=== PATIENT | female | born 1970 | race African-American/Black ===

== ENCOUNTER 2019-11-11 14:04 | Inpatient (IN) | payer MEDICAID ==
[2019-11-11] VITALS (16 sets, daily range): BP systolic 138–188; BP diastolic 62–113
[~2019-11-11] VITALS: Ht 162.6 cm; Wt 91.2 kg
[2019-11-11] MEDS ORDERED: SODIUM CHLORIDE 0.9% 1,000 ML IV ONE ×2 (14:24→15:11)
[2019-11-11] MEDS ORDERED: ASPirin 81 mg TAB PO ONE (14:30)
[2019-11-11] MEDS ORDERED: cloNIDine HCL 0.1 MG TAB PO ONE (14:30)
[2019-11-11 14:32] LABS: Basophils # (auto) 0.2 10 ^3/uL (0-0.2); Basophils % (auto) 2.1 % (0.0-2.0); Eosinophils # (auto) 0.1 10 ^3/uL (0-0.8); Eosinophils % (auto) 1.5 % (0.0-7.0); Hematocrit 45.6 % (36.0-46.0); Hemoglobin 15.4 g/dL (12.2-16.2); Lymphocytes # (auto) 2.5 10 ^3/uL (0.4-5.4); Lymphocytes % (auto) 27.2 % (10.0-50.0); Mean Corpuscular Hemoglobin 30.6 pg (28.0-32.0); Mean Corpuscular Hgb Conc. 33.7 g/dL (32.0-36.0); Mean Corpuscular Volume 90.9 fL (80.0-100.0); Monocytes # (auto) 0.8 10 ^3/uL (0-1.3); Monocytes % (auto) 8.7 % (0.0-12.0); Neutrophils # (auto) 5.6 10 ^3/uL (1.6-8.6); Neutrophils % (auto) 60.5 % (37.0-80.0); Nucleated Red Blood Cells % 0.1 %; Platelet Count (auto) 367 10^3/uL (140-450); Red Blood Cells 5.01 10^6/uL (4.0-5.20); White Blood Cell 9.2 10^3/uL (4.4-10.8)
[2019-11-11 14:49] LABS: Albumin 3.2 g/dL (3.4-5.0); Anion Gap 4 (5-15); Blood Urea Nitrogen 22 mg/dL (7-18); Calcium 8.8 mg/dL (8.5-10.1); Carbon Dioxide 30 mmol/L (21-32); Chloride 101 mmol/L (98-107); Potassium 4.3 mmol/L (3.5-5.1); Sodium 135 mmol/L (136-145)
[2019-11-11 14:54] LABS: Alanine Aminotransferase 20 U/L (13-56); Alkaline Phosphatase 109 U/L (45-117); Aspartate Aminotransferase 14 U/L (15-37); BUN/Creatinine Ratio 18.3; Bilirubin, Total 0.4 mg/dL (0.2-1.0); GFR African American 62 mL/min; GFR Non-African American 51 mL/min; Total Protein 7.7 g/dL (6.4-8.2)
[2019-11-11] MEDS ORDERED: SODIUM CHLORIDE 0.9% 500 ML IVB ONE (15:11)
[2019-11-11 15:22] LABS: Glucose 420 mg/dL (74-106)
[2019-11-11 15:50] LABS: Partial Thromboplastin Time 27.5 sec (23.64-32.05)
[2019-11-11] MEDS ORDERED: InsuLIN REG 1unit/0.01ml Soln (100units/ml) IV ONE (16:00)
[2019-11-11] MEDS ORDERED: ISOSORBIDE MONONITRATE ER 60 MG TAB PO ONE (17:00)
[2019-11-11] MEDS: InsuLIN REG 1unit/0.01ml Soln (100units/ml) SC SCH ×3 (17:00→22:17)
[2019-11-11] MEDS ORDERED: MORPHINE SULF INJ 2 MG/ML SYRINGE 1ML IV PRN (17:00)
[2019-11-11] MEDS ORDERED: ACCU-CHEK COMFORT CURVE STRIP VI SCH (17:00)
[2019-11-11] MEDS: ACCU-CHEK COMFORT CURVE STRIP VI SCH ×2 (17:00→22:17)
[2019-11-11] MEDS ORDERED: NITROGLYCERIN 0.4 MG SL TAB SL PRN (17:00)
[2019-11-11] MEDS ORDERED: DEXTROSE (50%) 50ML SYRG IV PRN ×2 (17:00)
[2019-11-11 19:19] LABS: Cholesterol 236 mg/dL (< 200); HDL Cholesterol 56 mg/dL (40-59); LDL Cholesterol 143 mg/dL (< 100); Triglycerides 261 mg/dL (< 150)
[2019-11-11] MEDS: INSULIN LANTUS (GLARGINE) 1 /0.01ml (100units/ml) SC SCH (22:17)
[2019-11-11] MEDS: hydrALAZINE HCL 25 MG TAB PO SCH (22:25)
[2019-11-12] VITALS (63 sets, daily range): BP systolic 121–228; BP diastolic 62–147
[2019-11-12] MEDS ORDERED: ATOR40TA52 PO (00:24)
[2019-11-12] MEDS ORDERED: HYDR50TA15 PO (00:24)
[2019-11-12] MEDS ORDERED: INSLISPI SC (00:24)
[2019-11-12] MEDS ORDERED: LISI10TA6 PO (00:24)
[2019-11-12] MEDS ORDERED: LAB20I PO (00:24)
[2019-11-12] MEDS ORDERED: INS7030I SC (00:24)
[2019-11-12] MEDS: ONDANSETRON HCL 4 MG/2 ML VIAL IV PRN (03:00)
[2019-11-12] MEDS: ACCU-CHEK COMFORT CURVE STRIP VI SCH ×4 (06:02→22:00)
[2019-11-12] MEDS: InsuLIN REG 1unit/0.01ml Soln (100units/ml) SC SCH ×4 (06:02→22:00)
[2019-11-12] MEDS: hydrALAZINE HCL 25 MG TAB PO SCH ×3 (09:50→22:00)
[2019-11-12] MEDS: ISOSORBIDE MONONITRATE ER 60 MG TAB PO SCH (09:51)
[2019-11-12] MEDS ORDERED: ASPirin 81 mg TAB PO SCH ×2 (10:00→18:15)
[2019-11-12 10:32] LABS: Urine Bacteria NONE SEEN /hpf (None Seen); Urine Blood Negative /uL (Negative); Urine Mucus FEW (None Seen); Urine Specific Gravity 1.021 (1.001-1.035); Urine WBC 3 /hpf (0 - 5)
[2019-11-12 10:44] LABS: Alcohol, Urine < 3.0 mg/dL (0-5); Amphetamine Screen, Urine NEGATIVE (NEGATIVE); Barbiturate Scree,Urine NEGATIVE (NEGATIVE); Benzodiazephine Screen, Urine NEGATIVE (NEGATIVE); Cocaine Screen, Urine NEGATIVE (NEGATIVE); Opiate Scree,Urine NEGATIVE (NEGATIVE); Phencyclidine Screen, Urine NEGATIVE (NEGATIVE)
[2019-11-12 10:54] LABS: Cannabinoid Screen, Urine POSITIVE (NEGATIVE)
[2019-11-12] MEDS ORDERED: LABETALOL HCL 200 MG TAB PO ONE (11:45)
[2019-11-12 11:52] LABS: Basophils # (auto) 0.2 10 ^3/uL (0-0.2); Basophils % (auto) 1.5 % (0.0-2.0); Eosinophils # (auto) 0.2 10 ^3/uL (0-0.8); Eosinophils % (auto) 1.6 % (0.0-7.0); Hematocrit 41.4 % (36.0-46.0); Hemoglobin 13.7 g/dL (12.2-16.2); Lymphocytes # (auto) 3.6 10 ^3/uL (0.4-5.4); Lymphocytes % (auto) 27.9 % (10.0-50.0); Mean Corpuscular Hemoglobin 29.8 pg (28.0-32.0); Mean Corpuscular Volume 90.3 fL (80.0-100.0); Monocytes # (auto) 1.2 10 ^3/uL (0-1.3); Monocytes % (auto) 9.2 % (0.0-12.0); Neutrophils # (auto) 7.6 10 ^3/uL (1.6-8.6); Neutrophils % (auto) 59.8 % (37.0-80.0); Platelet Count (auto) 364 10^3/uL (140-450); Red Blood Cells 4.58 10^6/uL (4.0-5.20); Red Cell Distribution Width 13.9 % (11.8-14.3); White Blood Cell 12.7 10^3/uL (4.4-10.8)
[2019-11-12 12:13] LABS: Albumin 2.9 g/dL (3.4-5.0); Calcium 8.5 mg/dL (8.5-10.1); Magnesium 2.1 mg/dL (1.6-2.6)
[2019-11-12 12:17] LABS: BUN/Creatinine Ratio 18.9; Bilirubin, Total 0.6 mg/dL (0.2-1.0)
[2019-11-12] MEDS: INSULIN 70/30 1unit/0.01ml Susp (100units/ml) SC SCH (17:32)
[2019-11-12] MEDS ORDERED: LORazepam 2MG/ML-1ML VIAL IV PRN (18:15)
[2019-11-12] MEDS: INSULIN LANTUS (GLARGINE) 1 /0.01ml (100units/ml) SC SCH (22:00)
[2019-11-12] MEDS: LABETALOL HCL 200 MG TAB PO SCH (22:00)
[2019-11-12] MEDS: ATORVASTATIN 20 MG TAB PO SCH (22:00)
[2019-11-13] VITALS (9 sets, daily range): BP systolic 140–190; BP diastolic 66–91
[2019-11-13 03:54] LABS: Basophils # (auto) 0.1 10 ^3/uL (0-0.2); Basophils % (auto) 0.8 % (0.0-2.0); Eosinophils # (auto) 0.2 10 ^3/uL (0-0.8); Eosinophils % (auto) 1.6 % (0.0-7.0); Hematocrit 35.2 % (36.0-46.0); Hemoglobin 11.9 g/dL (12.2-16.2); Lymphocytes # (auto) 3.7 10 ^3/uL (0.4-5.4); Lymphocytes % (auto) 33.4 % (10.0-50.0); Mean Corpuscular Hemoglobin 30.8 pg (28.0-32.0); Mean Corpuscular Hgb Conc. 33.9 g/dL (32.0-36.0); Mean Corpuscular Volume 90.8 fL (80.0-100.0); Monocytes # (auto) 1.3 10 ^3/uL (0-1.3); Monocytes % (auto) 11.3 % (0.0-12.0); Neutrophils # (auto) 5.9 10 ^3/uL (1.6-8.6); Neutrophils % (auto) 52.9 % (37.0-80.0); Nucleated Red Blood Cells % 0.1 %; Platelet Count (auto) 299 10^3/uL (140-450); Red Blood Cells 3.87 10^6/uL (4.0-5.20); Red Cell Distribution Width 14.3 % (11.8-14.3); White Blood Cell 11.2 10^3/uL (4.4-10.8)
[2019-11-13 04:17] LABS: Potassium 3.8 mmol/L (3.5-5.1)
[2019-11-13 04:23] LABS: BUN/Creatinine Ratio 23.7; Calcium 8.2 mg/dL (8.5-10.1)
[2019-11-13] MEDS: hydrALAZINE HCL 25 MG TAB PO SCH ×5 (06:00→21:08)
[2019-11-13] MEDS: InsuLIN REG 1unit/0.01ml Soln (100units/ml) SC SCH ×4 (06:40→21:25)
[2019-11-13] MEDS: ACCU-CHEK COMFORT CURVE STRIP VI SCH ×4 (06:42→21:26)
[2019-11-13] MEDS: INSULIN 70/30 1unit/0.01ml Susp (100units/ml) SC SCH ×2 (08:00→17:37)
[2019-11-13] MEDS: LABETALOL HCL 200 MG TAB PO SCH ×2 (09:25→21:10)
[2019-11-13] MEDS: ISOSORBIDE MONONITRATE ER 60 MG TAB PO SCH (09:26)
[2019-11-13] MEDS ORDERED: ASPirin 81 mg TAB PO SCH (10:00)
[2019-11-13] MEDS ORDERED: LISINOPRIL 20 MG TAB PO ONE (13:45)
[2019-11-13] MEDS ORDERED: IOHEXOL 350 MG/ML 100ML IJ ONE (17:11)
[2019-11-13] MEDS ORDERED: LABETALOL HCL 5 MG/ML 4ML SYRINGE IV ONE (20:43)
[2019-11-13] MEDS: ATORVASTATIN 20 MG TAB PO SCH (21:08)
[2019-11-13] MEDS: INSULIN LANTUS (GLARGINE) 1 /0.01ml (100units/ml) SC SCH (21:26)
[2019-11-13] MEDS: ONDANSETRON HCL 4 MG/2 ML VIAL IV PRN (22:44)
[2019-11-13] MEDS ORDERED: ASPirin 81 mg TAB PO PRN (23:45)
[2019-11-14] MEDS ORDERED: ASPirin-EC 81 mg tab PO ONE (01:12)
[2019-11-14 04:42] VITALS: BP 147/74
[2019-11-14] MEDS: ACCU-CHEK COMFORT CURVE STRIP VI SCH ×4 (06:29→22:57)
[2019-11-14] MEDS: hydrALAZINE HCL 25 MG TAB PO SCH ×4 (06:31→22:37)
[2019-11-14] MEDS: InsuLIN REG 1unit/0.01ml Soln (100units/ml) SC SCH ×4 (06:32→22:00)
[2019-11-14] MEDS: LABETALOL HCL 5 MG/ML 4ML SYRINGE IV PRN ×2 (07:52→18:45)
[2019-11-14] MEDS: INSULIN 70/30 1unit/0.01ml Susp (100units/ml) SC SCH ×2 (08:01→17:46)
[2019-11-14 09:14] VITALS: BP 193/87
[2019-11-14] MEDS: ASPirin 81 mg TAB PO SCH (09:46)
[2019-11-14] MEDS: LISINOPRIL 20 MG TAB PO SCH (09:47)
[2019-11-14] MEDS: LABETALOL HCL 200 MG TAB PO SCH ×2 (09:48→22:36)
[2019-11-14] MEDS: ISOSORBIDE MONONITRATE ER 60 MG TAB PO SCH (09:48)
[2019-11-14 13:00] VITALS: BP 135/62
[2019-11-14 17:00] VITALS: BP 180/78
[2019-11-14 20:00] VITALS: BP 131/69
[2019-11-14 21:57] VITALS: BP 131/69
[2019-11-14] MEDS: ATORVASTATIN 20 MG TAB PO SCH (22:34)
[2019-11-14] MEDS: INSULIN LANTUS (GLARGINE) 1 /0.01ml (100units/ml) SC SCH (23:04)
[2019-11-15] MEDS ORDERED: ONDANSETRON HCL 4 MG/2 ML VIAL ONE ×2 (01:24→01:49)
[2019-11-15] MEDS ORDERED: LORazepam 0.5 MG TAB ONE (01:49)
[2019-11-15] MEDS ORDERED: ACETAMINOPHEN 325 MG TAB PO ONE (01:50)
[2019-11-15] MEDS: ONDANSETRON HCL 4 MG/2 ML VIAL IV PRN ×2 (01:52→07:40)
[2019-11-15] MEDS: ACETAMINOPHEN 325 MG TAB PO PRN (01:52)
[2019-11-15 05:06] VITALS: BP 182/80
[2019-11-15 05:40] LABS: Basophils # (auto) 0 10 ^3/uL (0-0.2); Basophils % (auto) 0.2 % (0.0-2.0); Eosinophils # (auto) 0.1 10 ^3/uL (0-0.8); Eosinophils % (auto) 1.4 % (0.0-7.0); Hematocrit 36.7 % (36.0-46.0); Lymphocytes % (auto) 20.6 % (10.0-50.0); Mean Corpuscular Hemoglobin 29.9 pg (28.0-32.0); Mean Corpuscular Hgb Conc. 32.7 g/dL (32.0-36.0); Mean Corpuscular Volume 91.5 fL (80.0-100.0); Monocytes # (auto) 0.8 10 ^3/uL (0-1.3); Monocytes % (auto) 8.3 % (0.0-12.0); Neutrophils # (auto) 6.7 10 ^3/uL (1.6-8.6); Neutrophils % (auto) 69.5 % (37.0-80.0); Platelet Count (auto) 320 10^3/uL (140-450); Red Blood Cells 4.01 10^6/uL (4.0-5.20); Red Cell Distribution Width 14.5 % (11.8-14.3); White Blood Cell 9.6 10^3/uL (4.4-10.8)
[2019-11-15 06:07] LABS: Albumin 2.5 g/dL (3.4-5.0); Calcium 8.1 mg/dL (8.5-10.1); Potassium 4.2 mmol/L (3.5-5.1)
[2019-11-15 06:12] LABS: BUN/Creatinine Ratio 19.6; Bilirubin, Total 0.4 mg/dL (0.2-1.0); Total Protein 6.4 g/dL (6.4-8.2)
[2019-11-15] MEDS: InsuLIN REG 1unit/0.01ml Soln (100units/ml) SC SCH ×4 (06:34→22:28)
[2019-11-15] MEDS: hydrALAZINE HCL 25 MG TAB PO SCH ×4 (06:35→22:01)
[2019-11-15] MEDS: ACCU-CHEK COMFORT CURVE STRIP VI SCH ×4 (06:35→22:29)
[2019-11-15] MEDS: ISOSORBIDE MONONITRATE ER 60 MG TAB PO SCH (08:50)
[2019-11-15] MEDS: LISINOPRIL 20 MG TAB PO SCH (08:51)
[2019-11-15] MEDS: ASPirin 81 mg TAB PO SCH (08:51)
[2019-11-15] MEDS: LABETALOL HCL 200 MG TAB PO SCH ×2 (08:51→22:01)
[2019-11-15 09:00] VITALS: BP 165/84
[2019-11-15] MEDS: LABETALOL HCL 5 MG/ML 4ML SYRINGE IV PRN ×3 (09:58→20:54)
[2019-11-15 13:00] VITALS: BP 151/68
[2019-11-15 17:00] VITALS: BP 187/86
[2019-11-15] MEDS ORDERED: DOCUSATE SOD 100 MG CAP PO ONE (18:15)
[2019-11-15] MEDS: LACTULOSE 20Gm/30ML SOLN PO SCH (21:57)
[2019-11-15 22:00] VITALS: BP 190/83
[2019-11-15] MEDS: ATORVASTATIN 20 MG TAB PO SCH (22:00)
[2019-11-15] MEDS: LORazepam 0.5 MG TAB PO PRN (22:02)
[2019-11-15] MEDS: DOCUSATE SOD 100 MG CAP PO SCH (22:02)
[2019-11-15] MEDS: INSULIN LANTUS (GLARGINE) 1 /0.01ml (100units/ml) SC SCH (22:28)
[2019-11-15 23:16] VITALS: BP 148/72
[2019-11-16] MEDS ORDERED: LABETALOL HCL 5 MG/ML 4ML SYRINGE IV ONE (04:59)
[2019-11-16 05:00] VITALS: BP 151/75
[2019-11-16] MEDS: LABETALOL HCL 5 MG/ML 4ML SYRINGE IV PRN ×2 (05:05→13:21)
[2019-11-16] MEDS ORDERED: SODIUM CHLORIDE 0.9% 1,000 ML IV SCH (06:00)
[2019-11-16] MEDS: hydrALAZINE HCL 25 MG TAB PO SCH ×4 (06:24→21:42)
[2019-11-16] MEDS: ACCU-CHEK COMFORT CURVE STRIP VI SCH ×4 (06:27→21:43)
[2019-11-16] MEDS: InsuLIN REG 1unit/0.01ml Soln (100units/ml) SC SCH ×4 (06:28→21:43)
[2019-11-16 09:00] VITALS: BP 157/83
[2019-11-16 09:55] LABS: Basophils # (auto) 0.1 10 ^3/uL (0-0.2); Basophils % (auto) 0.9 % (0.0-2.0); Eosinophils # (auto) 0.3 10 ^3/uL (0-0.8); Eosinophils % (auto) 3.1 % (0.0-7.0); Hematocrit 40.2 % (36.0-46.0); Hemoglobin 13.4 g/dL (12.2-16.2); Lymphocytes # (auto) 2.5 10 ^3/uL (0.4-5.4); Lymphocytes % (auto) 27.2 % (10.0-50.0); Mean Corpuscular Hemoglobin 30.9 pg (28.0-32.0); Mean Corpuscular Hgb Conc. 33.2 g/dL (32.0-36.0); Monocytes # (auto) 1.1 10 ^3/uL (0-1.3); Monocytes % (auto) 12.2 % (0.0-12.0); Neutrophils # (auto) 5.1 10 ^3/uL (1.6-8.6); Neutrophils % (auto) 56.6 % (37.0-80.0); Platelet Count (auto) 334 10^3/uL (140-450); Red Blood Cells 4.32 10^6/uL (4.0-5.20); Red Cell Distribution Width 14.5 % (11.8-14.3); White Blood Cell 9.1 10^3/uL (4.4-10.8)
[2019-11-16 10:13] LABS: INR 1.03 (0.9-1.15); Partial Thromboplastin Time 27.3 sec (23.64-32.05)
[2019-11-16] MEDS ORDERED: LIDOCAINE VISCOUS 2% 15ML UD PO ONE (10:15)
[2019-11-16] MEDS ORDERED: MIDAZOLAM HCL 1MG/1ML-2 ML VIAL IV ONE (10:15)
[2019-11-16] MEDS ORDERED: fentaNYL CITRATE 100 MCG/2 ML VL IV ONE (10:15)
[2019-11-16 10:27] LABS: Albumin 2.9 g/dL (3.4-5.0); Calcium 8.7 mg/dL (8.5-10.1); Potassium 4.2 mmol/L (3.5-5.1)
[2019-11-16 10:31] LABS: BUN/Creatinine Ratio 16.1; Bilirubin, Total 0.4 mg/dL (0.2-1.0); Total Protein 6.9 g/dL (6.4-8.2)
[2019-11-16] MEDS ORDERED: cloNIDine HCL 0.1 MG TAB PO PRN (13:15)
[2019-11-16] MEDS ORDERED: amLODIPine BESYLATE 5 MG TAB PO ONE (13:30)
[2019-11-16] MEDS: ASPirin 81 mg TAB PO SCH (14:41)
[2019-11-16] MEDS: LABETALOL HCL 200 MG TAB PO SCH ×2 (14:42→21:42)
[2019-11-16] MEDS: ISOSORBIDE MONONITRATE ER 60 MG TAB PO SCH (14:43)
[2019-11-16] MEDS: LACTULOSE 20Gm/30ML SOLN PO SCH ×2 (14:44→21:42)
[2019-11-16] MEDS: DOCUSATE SOD 100 MG CAP PO SCH ×2 (14:44→21:42)
[2019-11-16 16:36] VITALS: BP 124/60
[2019-11-16] MEDS: ONDANSETRON HCL 4 MG/2 ML VIAL IV PRN (17:00)
[2019-11-16 20:00] VITALS: BP 149/73
[2019-11-16] MEDS: INSULIN LANTUS (GLARGINE) 1 /0.01ml (100units/ml) SC SCH (21:44)
[2019-11-16] MEDS: ATORVASTATIN 20 MG TAB PO SCH (21:52)
[2019-11-16 22:00] VITALS: BP 149/73
[2019-11-16] MEDS: LORazepam 0.5 MG TAB PO PRN (22:04)
[2019-11-17] MEDS: ACETAMINOPHEN 325 MG TAB PO PRN (03:17)
[2019-11-17 05:00] VITALS: BP 138/69
[2019-11-17] MEDS: hydrALAZINE HCL 25 MG TAB PO SCH ×3 (06:17→18:47)
[2019-11-17] MEDS: ACCU-CHEK COMFORT CURVE STRIP VI SCH ×3 (06:17→17:00)
[2019-11-17] MEDS: InsuLIN REG 1unit/0.01ml Soln (100units/ml) SC SCH ×3 (06:25→17:00)
[2019-11-17 08:44] VITALS: BP 140/79
[2019-11-17 08:45] VITALS: BP 159/86
[2019-11-17] MEDS: LABETALOL HCL 200 MG TAB PO SCH (08:52)
[2019-11-17] MEDS: DOCUSATE SOD 100 MG CAP PO SCH (08:52)
[2019-11-17] MEDS: ASPirin 81 mg TAB PO SCH (08:53)
[2019-11-17] MEDS: LACTULOSE 20Gm/30ML SOLN PO SCH (08:53)
[2019-11-17] MEDS: ISOSORBIDE MONONITRATE ER 60 MG TAB PO SCH (08:55)
[2019-11-17] MEDS ORDERED: HCTZ 25 MG TAB PO SCH (10:00)
[2019-11-17] MEDS ORDERED: amLODIPine BESYLATE 5 MG TAB PO SCH (10:00)
[2019-11-17 13:00] VITALS: BP 136/66
[2019-11-17] MEDS ORDERED: HYDR-2691 PO (14:22)
[2019-11-17] MEDS ORDERED: INS7030I SC (14:22)
[2019-11-17] MEDS ORDERED: ASPI81CH43 PO (14:22)
[2019-11-17] MEDS ORDERED: HCTZ25T PO (14:22)
[2019-11-17] MEDS ORDERED: ISO60SRT PO (14:22)
[2019-11-17] MEDS ORDERED: ATOR20TA50 PO (14:22)
[2019-11-17] MEDS ORDERED: LAB200T PO (14:22)
[2019-11-17] MEDS ORDERED: AML5T PO (14:22)
[2019-11-17] MEDS ORDERED: SPIR25TA88 PO (14:22)
[2019-11-17 15:11] VITALS: BP 136/66
[2019-11-17] MEDS ORDERED: LACTULOSE 20Gm/30ML SOLN PO ONE (16:00)
[2019-11-17 17:00] VITALS: BP 173/97
[2019-11-17] MEDS ORDERED: INSULIN 70/30 1unit/0.01ml Susp (100units/ml) SC SCH (18:00)
[2019-11-17] MEDS ORDERED: SPIRONOLACTONE 25 MG TAB PO SCH (18:00)
== END 2019-11-17 18:00 | disposition home or self-care (01) | DRG 45 ==
LOC: ER 14:04 → TELE 14:05 → ICU WEST 18:08 → TELE-WESTW 11-13 11:11
PROVIDERS: ADMIT Nurse Practitioner Acute Care; ATTEND Internal Medicine
PROC: B246ZZ4 Ultrasonography of Right and Left Heart, Transesophageal (ICD-10-PCS; principal; 2019-11-16)
DX: I63.9 Cerebral infarction, unspecified (principal); I67.4 Hypertensive encephalopathy; E11.22 Type 2 diabetes mellitus with diabetic chronic kidney disease; I16.9 Hypertensive crisis, unspecified; E11.65 Type 2 diabetes mellitus with hyperglycemia; E87.0 Hyperosmolality and hypernatremia; E44.1 Mild protein-calorie malnutrition; N18.3 Chronic kidney disease, stage 3 (moderate); E66.9 Obesity, unspecified; E78.5 Hyperlipidemia, unspecified; F12.10 Cannabis abuse, uncomplicated; F17.200 Nicotine dependence, unspecified, uncomplicated; I12.9 Hypertensive chronic kidney disease with stage 1 through stage 4 chronic kidney disease, or unspecified chronic kidney disease; Z82.49 Family history of ischemic heart disease and other diseases of the circulatory system; Z79.82 Long term (current) use of aspirin; Z79.4 Long term (current) use of insulin; Z86.73 Personal history of transient ischemic attack (TIA), and cerebral infarction without residual deficits; Z80.8 Family history of malignant neoplasm of other organs or systems; Z83.3 Family history of diabetes mellitus; Z68.33 Body mass index [BMI] 33.0-33.9, adult
CPT/HCPCS: 36415; 70450; 70545; 70551; 71046; 74175; 80048; 80053; 80061; 80307; 81001; 82533; 82962; 83036; 83735; 84443; 84484; 84702; 85025; 85610; 85730; 86225; 86235; 87040; 87081; 93005; 93306; 93312; 93886; 93975; 97110; 97116; 97163; 97530; 99152; G0378; J1815; J2250; J2405; J3490

== ENCOUNTER → 2020-11-23 | Outpatient (CLI) | payer MEDICAID ==
[~2020-11-23] MED LIST: AML5T PO; ASPI81CH43 PO; ATOR20TA50 PO; HYDR25TA5 PO; HYDR25TA87 PO; INS7030I SC; ISO60SRT PO; LABE200T6 PO; SPIR25TA PO
[2020-11-23 11:51] LABS: Basophils # (auto) 0.1 10 ^3/uL (0-0.2); Basophils % (auto) 1.1 % (0.0-2.0); Eosinophils # (auto) 0.4 10 ^3/uL (0-0.8); Eosinophils % (auto) 3.1 % (0.0-7.0); Hematocrit 38.1 % (36.0-46.0); Hemoglobin 13.2 g/dL (12.2-16.2); Lymphocytes # (auto) 3.6 10 ^3/uL (0.4-5.4); Lymphocytes % (auto) 31.2 % (10.0-50.0); Mean Corpuscular Hemoglobin 30.3 pg (28.0-32.0); Mean Corpuscular Hgb Conc. 34.7 g/dL (32.0-36.0); Mean Corpuscular Volume 87.4 fL (80.0-100.0); Monocytes % (auto) 8.8 % (0.0-12.0); Neutrophils # (auto) 6.4 10 ^3/uL (1.6-8.6); Neutrophils % (auto) 55.8 % (37.0-80.0); Nucleated Red Blood Cells % 0.1 %; Platelet Count (auto) 424 10^3/uL (140-450); Red Blood Cells 4.36 10^6/uL (4.0-5.20); Red Cell Distribution Width 14.3 % (11.8-14.3); White Blood Cell 11.5 10^3/uL (4.4-10.8)
[2020-11-23 12:30] LABS: Urine Bacteria FEW /hpf (None Seen); Urine Blood TRACE /uL (Negative); Urine Mucus FEW (None Seen); Urine Specific Gravity 1.016 (1.001-1.035); Urine WBC 75 /hpf (0 - 5)
[2020-11-23 12:54] LABS: Albumin 3.1 g/dL (3.4-5.0); Potassium 3.5 mmol/L (3.5-5.1)
[2020-11-23 13:01] LABS: BUN/Creatinine Ratio 15.7; Bilirubin, Total 0.5 mg/dL (0.2-1.0); Calcium 9.1 mg/dL (8.5-10.1); Total Protein 7.8 g/dL (6.4-8.2)
== END | disposition home or self-care (01) ==
LOC: LAB 11:32
PROVIDERS: ATTEND Internal Medicine
DX: E11.22 Type 2 diabetes mellitus with diabetic chronic kidney disease (principal); N18.30 Chronic kidney disease, stage 3 unspecified; E78.5 Hyperlipidemia, unspecified; N26.1 Atrophy of kidney (terminal)
CPT/HCPCS: 36415; 80053; 80061; 81001; 82043; 82306; 83036; 85025